=== PATIENT | female | born 1990 | race African-American/Black ===

== ENCOUNTER 2017-09-12 03:33 | Emergency (ER) | payer OTHER ==
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
[2017-09-12 03:46] VITALS: BMI 29.1
[2017-09-12 04:23] LABS: BASOPHIL 0.8 % (0-2.0); EOSINOPHIL 2.6 % (0-4.5); MCH 25.5 pg (25.7-33.7); MCHC 32.5 g/dl (32.0-36.0); MEAN CELL VOLUME 78.5 fl (80-96); MEAN PLT VOLUME 8.2 fl (7.5-11.1); NEUTROPHILS 65.6 % (42.8-82.8); PLATELET COUNT 259 K/MM3 (134-434); RDW 15.1 % (11.6-15.6); WHITE BLOOD COUNT 6.8 K/mm3 (4.0-10.0)
[2017-09-12] MEDS ORDERED: DIPHTH,PERTUSS(ACELL),TET 0.5 ML DISP.SYRIN IM ONE (04:43)
[2017-09-12 04:50] LABS: ALBUMIN 3.7 g/dl (3.4-5.0); ANION GAP 10 (8-16); BILIRUBIN,TOTAL 0.2 mg/dL (0.2-1.0); CALCIUM 8.4 mg/dL (8.5-10.1); CO2 22 mmol/L (21-32); CREATININE 1.1 mg/dL (0.55-1.02); GLUCOSE,RANDOM 101 mg/dL (74-106); SGPT/ALT 25 U/L (12-78); TOT PROT 7.6 g/dl (6.4-8.2)
[2017-09-12 04:52] LABS: ALK PHOS 89 U/L (45-117); SGOT/AST 32 U/L (15-37)
[2017-09-12] MEDS ORDERED: SODIUM CHLORIDE 0.9% 1000 ML INFUS.BAG IV ONE (05:27)
[2017-09-12] MEDS ORDERED: morphine CARPU-JECT 2 MG/1 ML DISP.SYRIN IVPUSH ONE (05:27)
[2017-09-12] MEDS ORDERED: morphine CARPU-JECT 2 MG/1 ML DISP.SYRIN ONE (05:29)
[2017-09-12 08:10] VITALS: TEMP 98
[2017-09-12 11:00] LABS: URINE APPEARANCE SLCLOUDY; URINE BILIRUBIN NEGATIVE (NEGATIVE); URINE BLOOD NEGATIVE (NEGATIVE); URINE COLOR YELLOW; URINE GLUCOSE (UA) NEGATIVE (NEGATIVE); URINE KETONE NEGATIVE (NEGATIVE); URINE NITRITE NEGATIVE (NEGATIVE); URINE UROBILINOGEN NEGATIVE mg/dL (0.2-1.0)
[2017-09-12 11:06] LABS: URINE PROTEIN 1+ (NEGATIVE)
[2017-09-12 11:38] LABS: URINE BACTERIA RARE /hpf (NONE SEEN); URINE HYALINE CAST 23 /lpf; URINE MUCUS MANY; URINE RBC 4 /hpf (0-3); URINE WBC 2 /hpf (3-5)
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
[2017-09-12 12:52] VITALS: BP 133/87; PULSE 89
[2017-09-12 17:59] LABS: URINE LEUK ESTERASE Negative (NEGATIVE)
== END 2017-09-12 12:52 | disposition home or self-care (01) ==
LOC: JER 03:33
PROC: 3E0234Z Introduction of Serum, Toxoid and Vaccine into Muscle, Percutaneous Approach (ICD-10-PCS; principal; 2017-09-12)
PROC: 3E033NZ Introduction of Analgesics, Hypnotics, Sedatives into Peripheral Vein, Percutaneous Approach (ICD-10-PCS; 2017-09-12)
PROC: 3E033NZ Introduction of Analgesics, Hypnotics, Sedatives into Peripheral Vein, Percutaneous Approach (ICD-10-PCS; 2017-09-12)
PROC: 0HQ1XZZ Repair Face Skin, External Approach (ICD-10-PCS; 2017-09-12)
DX: S00.83XA Contusion of other part of head, initial encounter (principal); S01.112A Laceration without foreign body of left eyelid and periocular area, initial encounter; S80.211A Abrasion, right knee, initial encounter; Y04.2XXA Assault by strike against or bumped into by another person, initial encounter; Y93.89 Activity, other specified; Y92.032 Bedroom in apartment as the place of occurrence of the external cause; Y07.01 Husband, perpetrator of maltreatment and neglect
CPT/HCPCS: 12011-25; 36415; 70450-TC; 70486-TC; 80053; 80307; 81003; 81015; 84702; 85025; 85730; 86850; 86900; 86901; 90471; 90715; 96374; 96375; 99283-25

== ENCOUNTER 2018-12-16 12:30 | Emergency (ER) | payer OTHER ==
[2018-12-16 12:34] VITALS: BP 132/82; PULSE 83; TEMP 97.8; BMI 29.1
--- NOTE | 2018-12-16 13:35 | PDOC ---
History of Present Illness - General Chief Complaint: Rash Stated Complaint: SICK Time Seen by Provider: 12/16/18 12:54 - History of Present Illness Initial Comments: 12/16/18 13:32 28-year-old female presents for evaluation of left lower molar toothache times one week. She is requesting a refill of her Elocon steroidal cream for her eczema. She also has concerns of vaginal discharge. She states she gets discharge prior to her period which has been long-standing and going on for years. Past History - Past Medical History Allergies/Adverse Reactions: Allergies Allergy/AdvReac Type Severity Reaction Status Date / Time No Known Allergies Allergy Verified 12/16/18 12:33 Home Medications: Ambulatory Orders Amoxicillin - [Amoxicillin 875mg Tablet -] 875 mg PO BID #14 tab 12/16/18 Mometasone Furoate [Elocon] 15 gm TP DAILY #1 cream..g. 12/16/18 Asthma: Yes COPD: No - Suicide/Smoking/Psychosocial Hx Smoking History: Never smoked Have you smoked in the past 12 months: No Hx Alcohol Use: No Drug/Substance Use Hx: No Review of Systems - Review of Systems Constitutional: No: Fever HEENTM: Yes: Dental Problems Integumentary: Yes: Rash *Physical Exam - Vital Signs Last Vital Signs Temp Pulse Resp BP Pulse Ox 97.8 F 83 18 132/82 98 12/16/18 12:32 12/16/18 12:32 12/16/18 12:32 12/16/18 12:32 12/16/18 12:32 - Physical Exam Comments: 12/16/18 13:33 HEAD: NC/AT EYES: Conjuntiva clear Ears: Canals and TM's normal NOSE: No d/c THROAT: Moist mucous membrances, oral pharanx clear, uvula midline; there is poor dentition and a large cavity in the left rear molar NECK: Supple without adenopathy CARDIAC: S1 S2 LUNGS: CTA Full and Equal breath sounds ABDOMEN: Soft NT ND MS: Full ROM in all joints without edema NEUROLOGIC: No gross sensory or motor deficits, NVID SKIN: Normal color and temperature no lesions there is a diffuse scaly rash about the face and flexor surfaces of the arms Moderate Sedation - Procedure Monitoring Vital Signs: Procedure Monitoring Vital Signs Temperature 97.8 F 12/16/18 12:32 Pulse Rate 83 12/16/18 12:32 Respiratory Rate 18 12/16/18 12:32 Blood Pressure 132/82 12/16/18 12:32 O2 Sat by Pulse Oximetry (%) 98 12/16/18 12:32 *DC/Admit/Observation/Transfer Diagnosis at time of Disposition: Eczema, Tooth decay - Discharge Dispostion Disposition: HOME Condition at time of disposition: Stable Decision to Admit order: No - Prescriptions Prescriptions: Amoxicillin - [Amoxicillin 875mg Tablet -] 875 mg PO BID #14 tab Mometasone Furoate [Elocon] 15 gm TP DAILY #1 cream..g. - Referrals Referrals: Urgent Care [facility] [Outside] - Patient Instructions Printed Discharge Instructions: DI for Tooth Decay Additional Instructions: He may follow-up with urgent care dental at any time for further evaluation and treatment options of your toothache. You should go within the next 1-2 days. Return to the emergency room should symptoms worsen or go unresolved. Please follow-up with your director center as scheduled for reevaluation of your eczema. And follow-up with her baby attendant for evaluation of the discharge - Post Discharge Activity
== END 2018-12-16 13:37 | disposition home or self-care (01) ==
LOC: JERFT 12:30
DX: K02.9 Dental caries, unspecified (principal); L30.8 Other specified dermatitis
CPT/HCPCS: 99281-25

== ENCOUNTER 2019-01-17 22:33 | Emergency (ER) | payer OTHER ==
[2019-01-17 22:42] VITALS: BP 135/80; PULSE 83; TEMP 98; BMI 29.1
--- NOTE | 2019-01-17 23:48 | PDOC ---
History of Present Illness - General Chief Complaint: Rash Stated Complaint: RASH Time Seen by Provider: 01/17/19 23:19 History Source: Patient Exam Limitations: Clinical Condition - History of Present Illness Initial Comments: 01/17/19 23:59 Patient with history of eczema present with complaint of eczema flareup and she ran out of her medication. Patient requests refill of her medication. Patient reported rash to back of bilateral hands and anterior torso. Patient denies any other symptoms Timing/Duration: 1 week Past History - Past Medical History Allergies/Adverse Reactions: Allergies Allergy/AdvReac Type Severity Reaction Status Date / Time No Known Allergies Allergy Verified 01/17/19 22:41 Home Medications: Ambulatory Orders Mometasone Furoate [Elocon] 50 gm TP DAILY #1 cream..g. 01/17/19 Asthma: Yes COPD: No - Suicide/Smoking/Psychosocial Hx Smoking History: Never smoked Have you smoked in the past 12 months: No Information on smoking cessation initiated: No Hx Alcohol Use: No Drug/Substance Use Hx: No Review of Systems - Review of Systems Able to Perform ROS?: Yes Is the patient limited Yi proficient: No Constitutional: No: Fever, Malaise, Weakness HEENTM: No: Symptoms Reported Respiratory: No: Symptoms reported ABD/GI: No: Symptoms Reported, Nausea, Vomiting Integumentary: Yes: See HPI, Pruritus (over rash area), Rash (back of b/l hands. torso) All Other Systems: Reviewed and Negative *Physical Exam - Vital Signs Last Vital Signs Temp Pulse Resp BP Pulse Ox 98.0 F 83 16 135/80 100 01/17/19 22:40 01/17/19 22:40 01/17/19 22:40 01/17/19 22:40 01/17/19 22:40 - Physical Exam Comments: 01/18/19 00:01 GENERAL: Well developed, well nourished. Awake and alert. No acute distress. HEENT: Normocephalic, atraumatic. PERRLA, EOMI. No conjunctival pallor. Sclera are non- icteric. Moist mucous membranes. Oropharynx is clear. NECK: Supple. Full ROM. No JVD. Carotid pulses 2+ and symmetric, without bruits. No thyromegaly. No lymphadenopathy. CARDIOVASCULAR: Regular rate and rhythm. No murmurs, rubs, or gallops. Distal pulses are 2+ and symmetric. PULMONARY: No evidence of respiratory distress. Lungs clear to auscultation bilaterally. No wheezing, rales or rhonchi. ABDOMINAL: Soft. Non-tender. Non-distended. No rebound or guarding. No organomegaly. Normoactive bowel sounds. MUSCULOSKELETAL Normal range of motion at all joints. No bony deformities or tenderness. No CVA tenderness. SKIN: Warm and dry. multiple erythematous plague with scales to dorsal aspect of b/l hands and torso w/o excoriations. Normal capillary refill. No jaundice. NEUROLOGICAL: Alert, awake, appropriate. Gait is normal without ataxia. PSYCHIATRIC: Cooperative. Good eye contact. Appropriate mood and affect. General Appearance: Yes: Nourished, Appropriately Dressed. No: Apparent Distress Moderate Sedation - Procedure Monitoring Vital Signs: Procedure Monitoring Vital Signs Temperature 98.0 F 01/17/19 22:40 Pulse Rate 83 01/17/19 22:40 Respiratory Rate 16 01/17/19 22:40 Blood Pressure 135/80 01/17/19 22:40 O2 Sat by Pulse Oximetry (%) 100 01/17/19 22:40 Medical Decision Making - Medical Decision Making 01/18/19 00:03 Patient with presenting for eczema flareup and ran out of medication. Multiple erythematous rash with scales to dorsal aspect of bilateral hands and anterior torso consistent with eczema. Patient is stable for discharge on Elocon eczema medication with dermatology follow-up. *DC/Admit/Observation/Transfer Diagnosis at time of Disposition: Eczema Qualifiers: Eczema type: unspecified Qualified Code(s): L30.9 - Dermatitis, unspecified - Discharge Dispostion Disposition: HOME Condition at time of disposition: Stable Decision to Admit order: No - Prescriptions Prescriptions: Mometasone Furoate [Elocon] 50 gm TP DAILY #1 cream..g. - Referrals Referrals: Torrie Flowers MD [Staff Physician] - - Patient Instructions Printed Discharge Instructions: Eczema, Contact Dermatitis Additional Instructions: Take medication as prescribed. Follow-up with referred dermatology - Post Discharge Activity
--- NOTE | 2019-01-17 23:55 | PDOC ---
*Physical Exam - Vital Signs Last Vital Signs Temp Pulse Resp BP Pulse Ox 98.0 F 83 16 135/80 100 01/17/19 22:40 01/17/19 22:40 01/17/19 22:40 01/17/19 22:40 01/17/19 22:40 Medical Decision Making - Medical Decision Making 01/17/19 23:55 Pt seen by the Advanced Practice Provider under my direct supervision Ancillary studies reviewed I agree with plan as outlined by the Advanced Practice Provider AMOS Weller *DC/Admit/Observation/Transfer Diagnosis at time of Disposition: Eczema Qualifiers: Eczema type: unspecified Qualified Code(s): L30.9 - Dermatitis, unspecified - Discharge Dispostion Disposition: HOME Condition at time of disposition: Stable - Prescriptions Prescriptions: Mometasone Furoate [Elocon] 50 gm TP DAILY #1 cream..g. - Referrals Referrals: Torrie Flowers MD [Staff Physician] - - Patient Instructions Printed Discharge Instructions: Eczema, Contact Dermatitis Additional Instructions: Take medication as prescribed. Follow-up with referred dermatology - Post Discharge Activity
== END 2019-01-18 00:02 | disposition home or self-care (01) ==
LOC: JER 22:33
DX: L30.9 Dermatitis, unspecified (principal)
CPT/HCPCS: 99281-25

== ENCOUNTER 2019-03-19 17:59 | Emergency (ER) | payer OTHER ==
--- NOTE | 2019-03-19 18:27 | PDOC ---
Rapid Medical Evaluation Chief Complaint: Respiratory Time Seen by Provider: 03/19/19 18:25 Medical Evaluation: Allergies Allergy/AdvReac Type Severity Reaction Status Date / Time No Known Allergies Allergy Verified 01/17/19 22:41 03/19/19 18:25 I did a brief in person evaluation on this patient. CC: Rash and wheezing HPI: Pt states that she used Tilex with Bleach to clean mold from her residence and she feels as if she is wheezing more and has been using more of her inhaler. Pt also has eczema. PE: Skin: Clear Lungs: Clear Heart:RRR Abd: soft, non tender MS: Moves all extremities without difficulty Neuro: alert Psych: appropriate affect. Pt will proceed to [facility] for further evaluation. Discharge Disposition - Diagnosis Asthma Qualifiers: Asthma severity: mild Asthma persistence: unspecified Asthma complication type : uncomplicated Qualified Code(s): J45.909 - Unspecified asthma, uncomplicated - Referrals - Patient Instructions - Post Discharge Activity
[2019-03-19 18:33] VITALS: BP 127/73; PULSE 95; TEMP 98.3; BMI 29.9
--- NOTE | 2019-03-19 19:10 | PDOC ---
History of Present Illness - General Chief Complaint: Respiratory Stated Complaint: RASHES/ASTHMA Time Seen by Provider: 03/19/19 18:25 History Source: Patient Exam Limitations: Clinical Condition - History of Present Illness Initial Comments: 03/19/19 19:11 Patient with history of asthma and eczema present with complaint of asthma exacerbation causing wheezing and chest tightness due to mold contact in her bathroom. Patient lives in the [facility] and reported has been having a month history of mold issue in the bathroom which she has reported to [facility] [employer] without any intervention. Patient reports she was told by [facility] the mood could not be inspected until and of the month. Patient reported episode of red rashes all over the body due to reaction to the mood. Denies fever, chills, weakness. Patient reported she ran out of asthma inhaler. Denies any other symptoms Timing/Duration: other (1 month) Past History - Past Medical History Allergies/Adverse Reactions: Allergies Allergy/AdvReac Type Severity Reaction Status Date / Time No Known Allergies Allergy Verified 01/17/19 22:41 Home Medications: Ambulatory Orders Albuterol Sulfate Inhaler - [Ventolin Hfa Inhaler -] 2 inh PO Q4H #1 inh Mometasone Furoate [Elocon] 50 gm TP DAILY #1 cream..g. 03/19/19 predniSONE [Deltasone -] 20 mg PO BID 5 Days #10 tablet 03/19/19 Asthma: Yes COPD: No - Surgical History Abdominal Surgery: Yes - Immunization History Immunization Up to Date: Yes - Suicide/Smoking/Psychosocial Hx Smoking History: Never smoked Have you smoked in the past 12 months: No Information on smoking cessation initiated: No Hx Alcohol Use: No Drug/Substance Use Hx: No Review of Systems - Review of Systems Able to Perform ROS?: Yes Is the patient limited Kazakh proficient: No Constitutional: No: Fever, Malaise HEENTM: No: Symptoms Reported, See HPI, Eye Pain, Blurred Vision, Tearing, Recent change in vision, Double Vision, Cataracts, Ear Pain, Ocular Prothesis, Ear Discharge, Nose Pain, Nose Congestion, Tinnitus, Nose Bleeding, Hearing Loss , Throat Pain, Throat Swelling, Mouth Pain, Dental Problems, Difficulty Swallowing, Mouth Swelling, Other Respiratory: No: Symptoms reported, See HPI, Cough, Orthopnea, Shortness of Breath, SOB with Exertion, SOB at Rest, Stridor, Wheezing, Productive cough, Hemoptysis, Other Cardiac (ROS): No: Symptoms Reported, See HPI, Chest Pain, Edema, Irregular Heart Rate, Lightheadedness, Palpitations, Syncope, Chest Tightness, Other ABD/GI: No: Nausea, Vomiting Integumentary: Yes: Symptoms Reported, See HPI, Erythema, Rash Neurological: No: Headache, Dizziness All Other Systems: Reviewed and Negative *Physical Exam - Vital Signs Last Vital Signs Temp Pulse Resp BP Pulse Ox 98.3 F 95 H 18 127/73 99 03/19/19 18:26 03/19/19 18:26 03/19/19 18:26 03/19/19 18:26 03/19/19 18:26 - Physical Exam Comments: 03/19/19 19:17 GENERAL: Well developed, well nourished. Awake and alert. No acute distress. HEENT: Normocephalic, atraumatic. PERRLA, EOMI. No conjunctival pallor. Sclera are non-icteric. Moist mucous membranes. Oropharynx is clear. NECK: Supple. Full ROM. CARDIOVASCULAR: Regular rate and rhythm. No murmurs, rubs, or gallops. Distal pulses are 2+ and symmetric. PULMONARY: No evidence of respiratory distress. Lungs clear to auscultation bilaterally. No wheezing, rales or rhonchi. MUSCULOSKELETAL Normal range of motion at all joints. SKIN: Warm and dry. Normal capillary refill. Diffused multiple erythematous rash all over the body with small area of plaques and excoriations to b/l hands NEUROLOGICAL: Alert, awake, appropriate. Gait is normal without ataxia. PSYCHIATRIC: Cooperative. Good eye contact. Appropriate mood General Appearance: Yes: Nourished, Appropriately Dressed. No: Apparent Distress Medical Decision Making - Medical Decision Making 03/19/19 19:14 Patient with history of asthma and eczema present with complaint of asthma exacerbation causing wheezing and chest tightness due to mold contact in her bathroom. Patient lives in the [place] and reported has been having a month history of mold issue in the bathroom which she has reported to [employer] without any intervention. Patient reports she was told by [employer] the mood could not be inspected until and of the month. Patient reported episode of red rashes all over the body due to reaction to the mood. Denies fever, chills, weakness. Patient reported she ran out of asthma inhaler. Denies any other symptoms Exam significant for multiple areas of urticaria rash all over the body and areas of plaques to dorsal aspect of bilateral hands and palm of bilateral hands from eczema which patient report was caused by exposure to mold. Patient in no acute respiratory distress. Lungs clear to auscultation bilateral. Patient is stable for outpatient management on by mouth prednisone, Ventolin inhaler and topical momentosone for rash with PCP follow-up. Patient educated on the importance of eradicating mold from the house to prevent asthma exacerbation *DC/Admit/Observation/Transfer Diagnosis at time of Disposition: Mold exposure, Bronchospasm Asthma Qualifiers: Asthma severity: mild Asthma persistence: unspecified Asthma complication type : uncomplicated Qualified Code(s): J45.909 - Unspecified asthma, uncomplicated - Discharge Dispostion Disposition: HOME Condition at time of disposition: Stable Decision to Admit order: No - Prescriptions Prescriptions: Albuterol Sulfate Inhaler - [Ventolin Hfa Inhaler -] 2 inh PO Q4H #1 inh Mometasone Furoate [Elocon] 50 gm TP DAILY #1 cream..g. predniSONE [Deltasone -] 20 mg PO BID 5 Days #10 tablet - Referrals Referrals: Torrie Flowers MD [Staff Physician] - - Patient Instructions Printed Discharge Instructions: Asthma -- Adult, Asbestosis Additional Instructions: Take medication as prescribed. exposure to mold needs to be eradicated to prevent further asthma exacerbations, skin reaction and difficulty with breathing as mold can cause Asbestos which could be detrimental to your becky and affect your asthma control. Take every necessary step to resolve mold problem so your symptoms can be well controlled and not have asthma attacks - Post Discharge Activity
== END 2019-03-19 19:34 | disposition home or self-care (01) ==
LOC: JERFT 17:59
DX: J45.909 Unspecified asthma, uncomplicated (principal); L30.9 Dermatitis, unspecified; Z77.120 Contact with and (suspected) exposure to mold (toxic)
CPT/HCPCS: 99281-25

== ENCOUNTER 2019-11-26 21:29 | Emergency (ER) | payer OTHER ==
[2019-11-26 21:38] VITALS: BMI 30.7
[2019-11-26] MEDS ORDERED: ACETAMINOPHEN 500 MG TABLET (FP) PO ONE (21:57)
[2019-11-26] MEDS ORDERED: ACETAMINOPHEN 325 MG TABLET (FP) ONE (21:59)
--- NOTE | 2019-11-26 22:59 | PDOC ---
History of Present Illness - General History Source: Patient Exam Limitations: No Limitations - History of Present Illness Initial Comments: 11/26/19 22:54 Patient is a 28F with history of eczema and asthma here today complaining of a week of bodyaches, fevers, and epigastric abdominal pain. Patient also reports associated cloudy urine, denies dysuria. Patient denies chest pain, wheezing, shortness of breath. Last bowel movement two days ago. Denies vaginal symptoms and discharge. LMP 1 week ago. Patient states that she is worried that she has a kidney infection. Denies shortness of breath, chest pain, cough. Endorses rhinorrhea and dry mouth. Patient is also requesting a refill of mometasone for an exczema flare. <Toribio Carter - Last Filed: 11/27/19 00:11> <Halima Martin - Last Filed: 11/28/19 01:50> - General Chief Complaint: Pain, Acute Stated Complaint: ECZEMA Time Seen by Provider: 11/26/19 21:42 Past History - Past Medical History Asthma: Yes COPD: No Other medical history: eczema - Surgical History Abdominal Surgery: Yes - Immunization History Immunization Up to Date: Yes - Psycho Social/Smoking Cessation Hx Smoking History: Never smoked Have you smoked in the past 12 months: No Hx Alcohol Use: No Drug/Substance Use Hx: No <Toribio Carter - Last Filed: 11/27/19 00:11> <Halima Martin - Last Filed: 11/28/19 01:50> - Past Medical History Allergies/Adverse Reactions: Allergies Allergy/AdvReac Type Severity Reaction Status Date / Time No Known Allergies Allergy Verified 01/17/19 22:41 Home Medications: Ambulatory Orders Albuterol Sulfate Inhaler - [Ventolin Hfa Inhaler -] 2 inh PO Q4H #1 inh Mometasone Furoate [Elocon] 50 gm TP DAILY #1 cream..g. 03/19/19 predniSONE [Deltasone -] 20 mg PO BID 5 Days #10 tablet 03/19/19 Mometasone Furoate 45 gm TP DAILY #1 cream..g. 11/26/19 Cephalexin Monohydrate [Keflex -] 500 mg PO TID #30 capsule 11/27/19 Review of Systems - Review of Systems Able to Perform ROS?: Yes Comments:: 11/26/19 22:59 GENERAL/CONSTITUTIONAL: +fever +chills. No weakness. HEAD, EYES, EARS, NOSE AND THROAT: No change in vision. No sore throat. CARDIOVASCULAR: No chest pain or shortness of breath RESPIRATORY: No cough, wheezing, or hemoptysis. GASTROINTESTINAL: No nausea, vomiting, diarrhea or constipation. GENITOURINARY: No dysuria, frequency, +cloudy urine MUSCULOSKELETAL: No joint or muscle swelling or pain. No neck or back pain. SKIN: No rash NEUROLOGIC: No headache, vertigo, loss of consciousness, or change in strength/ sensation. ENDOCRINE: No increased thirst. No abnormal weight change HEMATOLOGIC/LYMPHATIC: No anemia, easy bleeding, or history of blood clots. ALLERGIC/IMMUNOLOGIC: No hives or skin allergy. <Toribio Carter - Last Filed: 11/27/19 00:11> *Physical Exam - Vital Signs Last Vital Signs Temp Pulse Resp BP Pulse Ox 102.9 F H 109 H 20 119/72 98 11/26/19 21:30 11/26/19 21:30 11/26/19 21:30 11/26/19 21:30 11/26/19 21:30 - Physical Exam 11/26/19 22:59 GENERAL: Awake, alert, and fully oriented, in no acute distress HEAD: No signs of trauma, normocephalic, atraumatic EYES: PERRLA, EOMI, sclera anicteric, conjunctiva clear ENT: Auricles normal inspection, hearing grossly normal, nares patent, oropharynx clear without exudates. Moist mucosa NECK: Normal ROM, supple, no lymphadenopathy, JVD, or masses LUNGS: No distress, speaks full sentences, clear to auscultation bilaterally HEART: Regular rate and rhythm, normal S1 and S2, no murmurs, rubs or gallops, peripheral pulses normal and equal bilaterally. ABDOMEN: Soft, nontender, normoactive bowel sounds. No guarding, no rebound. No masses EXTREMITIES: Normal inspection, Normal range of motion, no edema. No clubbing or cyanosis. NEUROLOGICAL: Cranial nerves II through XII grossly intact. Normal speech, normal gait, no focal sensorimotor deficits SKIN: Warm, Dry, normal turgor, no rashes or lesions noted. <Toribio Carter - Last Filed: 11/27/19 00:11> - Vital Signs Last Vital Signs Temp Pulse Resp BP Pulse Ox 98.5 F 80 18 115/75 99 11/27/19 00:20 11/27/19 00:20 11/27/19 00:20 11/27/19 00:20 11/27/19 00:20 <Halima Martin - Last Filed: 11/28/19 01:50> ED Treatment Course - Medications Given in the ED: ED Medications Discontinued Medications Generic Name Dose Route Start Last Admin Trade Name Freq PRN Reason Stop Dose Admin Acetaminophen 1,000 mg 11/26/19 21:57 11/26/19 22:01 Tylenol - PO 11/26/19 21:58 1,000 mg ONCE ONE Administration <Toribio Carter - Last Filed: 11/27/19 00:11> - Medications Given in the ED: ED Medications Discontinued Medications Generic Name Dose Route Start Last Admin Trade Name Freq PRN Reason Stop Dose Admin Acetaminophen 1,000 mg 11/26/19 21:57 11/26/19 22:01 Tylenol - PO 11/26/19 21:58 1,000 mg ONCE ONE Administration Cephalexin HCl 500 mg 11/27/19 00:13 11/27/19 00:24 Keflex - PO 11/27/19 00:14 500 mg ONCE ONE Administration <Halmia Martin - Last Filed: 11/28/19 01:50> Medical Decision Making - Medical Decision Making 11/26/19 22:59 Patient is 28F with history of asthma and eczema here today with fever and bodyaches. Nontender abdomen. DDx includes, but is not limited to: flu, viral syndrome, uti. Will evaluate with ua, rapid influenza, u preg. Given tylenol for fever. Patient is well appearing and not septic. Tolerating PO. 11/27/19 00:11 Flu negative. UTI+, will discharge with keflex. <Toribio Carter - Last Filed: 11/27/19 00:11> Discharge - Discharge Information Problems reviewed: Yes - Admission No <Toribio Carter - Last Filed: 11/27/19 00:11> <Halima Martin - Last Filed: 11/28/19 01:50> - Discharge Information Clinical Impression/Diagnosis: UTI (urinary tract infection) Condition: Good Disposition: HOME - Additional Discharge Information Prescriptions: Cephalexin Monohydrate [Keflex -] 500 mg PO TID #30 capsule Mometasone Furoate 45 gm TP DAILY #1 cream..g. - Patient Discharge Instructions Patient Printed Discharge Instructions: DI for Urinary Tract Infection (UTI) Additional Instructions: Please follow up with your primary care doctor in the next week. Please return if you have any new, worsening or concerning symptoms, especially increasing pain in your abdomen. - Post Discharge Activity Work/Back to School Note: Back to Work
--- NOTE | 2019-11-26 23:16 | PDOC ---
Attending Attestation - Resident Resident Name: RaulToribio - ED Attending Attestation I have performed the following: I have examined & evaluated the patient, The case was reviewed & discussed with the resident, I agree w/resident's findings & plan - HPI HPI: 11/26/19 23:15 Patient is a 28F with history of eczema and asthma here today complaining of a week of bodyaches, fevers, and epigastric abdominal pain. Patient also reports associated cloudy urine, denies dysuria. no chest pain, wheezing, shortness of breath. Last bowel movement two days ago. Denies vaginal symptoms and discharge. LMP 1 week ago. Denies shortness of breath, chest pain, cough. Endorses rhinorrhea and dry mouth. Patient is also requesting a refill of mometasone for eczema - Physicial Exam PE: 11/26/19 23:15 Agree with the resident's HPI and PE as documented in the electronic medical record. NAD, well appearing, EOMI, PERRL, nl conjunctiva, anicteric; neck supple. lungs clear, RRR, abdomen soft b/l flank TTP, no rebound, guarding. Back nontender. FRIAS x4, no focal neuro deficits. No peripheral edema. normal color for ethnicity, WWP. eczema on face, eczema patches on back and torso 11/27/19 00:15 11/27/19 00:24 - Medical Decision Making 11/26/19 23:15 Vital Signs Temp Pulse Resp BP Pulse Ox 102.9 F H 109 H 20 119/72 98 11/26/19 21:30 11/26/19 21:30 11/26/19 21:30 11/26/19 21:30 11/26/19 21:30 Vital signs notable for tachycardia and fever, normotensive and normal sats, no respiratory distress. Patient is comfortable and nontoxic appearing. We will check UA for infection, Respiratory infection could be viral versus flu, unlikely be pneumonia with clear lungs and no respiratory findings or lung exam abnormalities. given tylenol for fever, will recheck VS keith PO intake. ambulatory UA prelim with +Leuk esterase, could be UTI/early pyelonephritis, treat with abx flu neg. neg preg test. repeat VS with defervescence, tachy improved, well appearing. VS normalized treating as early pyelo with pain control, fluids, oral abx trial and return precautions if failure of abx 2-3 days. adequate rest and hydration. DC stable condition, return precautions, f/u culture. rx keflex x 10 days. rx mometasone for her eczema 11/27/19 00:04 11/27/19 00:15 11/27/19 00:24
[2019-11-26 23:20] LABS: URINE APPEARANCE CLOUDY; URINE BILIRUBIN NEGATIVE (NEGATIVE); URINE COLOR YELLOW; URINE GLUCOSE (UA) NEGATIVE (NEGATIVE); URINE KETONE TRACE (NEGATIVE); URINE LEUK ESTERASE 3+ (NEGATIVE); URINE NITRITE NEGATIVE (NEGATIVE); URINE PROTEIN 1+ (NEGATIVE)
[2019-11-26 23:42] LABS: URINE RBC 10.8 /hpf (0-4)
[2019-11-26 23:43] LABS: EPI CELLS 3.2 /HPF (0-5/HPF); HYALINE CASTS 5.95 /lpf (0-8); URINE BACTERIA 970.2 /hpf (NEGATIVE); URINE WBC 687.8 /hpf (0-5)
[2019-11-27] MEDS ORDERED: CEPHALEXIN MONOHYDRATE 500 MG CAPSULE (UD) PO ONE (00:13)
[2019-11-27] MEDS ORDERED: CEPHALEXIN MONOHYDRATE 500 MG CAPSULE (UD) ONE (00:15)
[2019-11-27 00:26] VITALS: BP 115/75; PULSE 80; TEMP 98.5
== END 2019-11-27 00:20 | disposition home or self-care (01) ==
LOC: JER 21:29
DX: L30.9 Dermatitis, unspecified (principal); J45.909 Unspecified asthma, uncomplicated
CPT/HCPCS: 81003; 84703; 87086; 87186; 87804; 99283-25

== ENCOUNTER 2020-06-23 16:59 | Emergency (ER) | payer OTHER ==
--- NOTE | 2020-06-23 17:04 | PDOC ---
Rapid Medical Evaluation Chief Complaint: Vaginal Sxs Time Seen by Provider: 06/23/20 17:01 Medical Evaluation: Allergies Allergy/AdvReac Type Severity Reaction Status Date / Time No Known Allergies Allergy Verified 01/17/19 22:41 06/23/20 17:01 The patient is a 29 y/o F who presents to the ER with vaginal discharge for 1 week. States it smells and off white in color. States she has not been sexually active in 7-8 months. Exam: defer to provider Order: urine Pt to proceed to the ER for further evaluation Discharge Disposition - Diagnosis Vaginal discharge - Referrals - Patient Instructions - Post Discharge Activity
[2020-06-23 17:11] VITALS: BP 125/81; PULSE 88; TEMP 98.1; BMI 27.4
--- NOTE | 2020-06-23 18:28 | PDOC ---
History of Present Illness - General Chief Complaint: Vaginal Sxs Stated Complaint: vaginal symptoms/dark urine Time Seen by Provider: 06/23/20 17:01 History Source: Patient Exam Limitations: No Limitations - History of Present Illness Initial Comments: 06/23/20 18:23 Patient is a 29-year-old female presents to the ED with complaint of vaginal discharge for the last 2 days. She states her period ended 1 week ago and began to have a discharge 2 days ago. She states the discharge is thin, beige in color and foul-smelling. She states she had BV in the past and this seems si milar. She denies any fevers or chills. She denies any abdominal pain. She denies any dysuria or hematuria. She does admit to not drinking very much water recently as her brother recently and she had not been taking good care of herself. She is doing better now drinking without order now. She states she has not been sexually active in about 5 months and is less concerned about this being an STD. Past History - Medical History Allergies/Adverse Reactions: Allergies Allergy/AdvReac Type Severity Reaction Status Date / Time No Known Allergies Allergy Verified 01/17/19 22:41 Home Medications: Ambulatory Orders Albuterol Sulfate Inhaler - [Ventolin Hfa Inhaler -] 2 inh PO Q4H #1 inh 03/19/19 Mometasone Furoate [Elocon] 50 gm TP DAILY #1 cream..g. 03/19/19 predniSONE [Deltasone -] 20 mg PO BID 5 Days #10 tablet 03/19/19 Mometasone Furoate 45 gm TP DAILY #1 cream..g. 11/26/19 metroNIDAZOLE 0.75% VAG. GEL [Metrogel 0.75% *Vaginal Gel* -] 1 applic VG HS 7 Days #1 tube 06/23/20 Asthma: Yes COPD: No - Surgical History Abdominal Surgery: Yes - Immunization History Immunization Up to Date: Yes - Psycho-Social/Smoking History Smoking History: Never smoked Have you smoked in the past 12 months: No - Substance Abuse Hx (Audit-C & DAST Scrn) How often the patient has a drink containing alcohol: Never Score: In Men: 4 or > Positive; In Women: 3 or > Positive: 0 Screen Result (Pos requires Nsg. Audit-10AR): Negative Review of Systems - Review of Systems Comments:: 06/23/20 18:25 - Review of Systems Able to Perform ROS?: Yes Constitutional: No: Fever, Chills, Loss of Appetite, Night Sweats, Weakness HEENTM: No: Eye Pain, Vision changes, Ear Pain, Throat Pain, Throat Swelling, Mouth Pain, Difficulty Swallowing Respiratory: No: Cough, Shortness of Breath, Wheezing, Sputum Production Cardiac (ROS): No: Chest Pain, Chest Tightness, Palpitations, Irregular Heart Beat, Edema ABD/GI: No: Nausea, Vomiting, Abdominal Pain, Diarrhea : No Dysuria, No Hematuria, No Frequency, No Urgency, positive: Vaginal discharge Musculoskeletal: No: Muscle Pain, Back Pain, Joint Pain, Muscle Weakness, Neck Pain Integumentary: No: Lesions, Rash Neurological: No: Headache, Numbness, Tingling, Weakness, Speech Difficulties *Physical Exam - Vital Signs Last Vital Signs Temp Pulse Resp BP Pulse Ox 98.1 F 88 20 125/81 97 06/23/20 17:01 06/23/20 17:01 06/23/20 17:01 06/23/20 17:01 06/23/20 17:01 - Physical Exam 06/23/20 18:25 - Physical Exam General Appearance: Nourished, Appropriately Dressed, No Distress HEENT: EOMI, Normal Voice, Hearing Grossly Normal Neck: Supple, No Lymphadenopathy (R), No Lymphadenopathy (L), No Rigidity, No Decreased range of motion Respiratory/Chest: Lungs Clear, Normal Breath Sounds. No Respiratory Distress, No Accessory Muscle Use Cardiovascular: Regular Rhythm, Regular Rate, S1, S2 Gastrointestinal/Abdominal: Normal Bowel Sounds, Soft. Non-tender, No Guarding, No Rebound, No Rigidity HEALTH INFORMATICS INSTRUCTOR: There is thin, beige, foul-smelling discharge in the vaginal vault. There is only a minimal to moderate amount of discharge in the vault. Cervix is nonfriable. No CMT. Adnexa is nontender and nonpalpable. No suprapubic tenderness and no masses palpated. Musculoskeletal: Normal Inspection. No Decreased Range of Motion Extremity: Normal Capillary Refill, Normal Inspection Integumentary: Normal Color, Dry. No Rash Neurologic: production line II-XII NML intact, Fully Oriented, Alert, Normal Mood/Affect, Normal Response ED Treatment Course - ADDITIONAL ORDERS Additional order review: 06/23/20 19:10 Laboratory Tests 06/23/20 06/23/20 18:22 18:22 Urine Color Yellow Urine Appearance Cloudy Urine pH 5.5 Ur Specific Hazel 1.029 Urine Protein Trace Urine Glucose (UA) Negative Urine Ketones Trace H Urine Blood Negative Urine Nitrite Negative Urine Bilirubin Negative Urine Urobilinogen 1.0 Ur Leukocyte Esterase 1+ H Urine WBC (Auto) 71 Urine RBC (Auto) 14 Urine Casts (Auto) 21 U Epithel Cells (Auto) >36 Urine Bacteria (Auto) 1657 Urine HCG, Qual Negative C. trachomatis (YADY) Pending N. gonorrhoeae (YADY) Pending Medical Decision Making - Medical Decision Making 06/23/20 18:26 Assessment: Patient is a 29-year-old female with 2 days of vaginal discharge. Plan: -The exam is consistent with bacterial vaginosis, vaginal culture sent -UA and urine culture ordered and sent -GC chlamydia ordered and sent -Will reassess 06/23/20 19:10 The patient has been made aware that her urinalysis shows a possible urinary tract infection but is contaminated. We will hold off on prescribing antib iotics at this time and we will wait for the urine culture. If the urine culture is positive we will call the patient and send a prescription to her pharmacy. We will treat her for bacterial vaginosis with MetroGel vaginal. She has been made aware that we will call her if her GC/chlamydia culture is positive. She understands and agrees with this treatment plan and she is stable for discharge. Discharge - Discharge Information Problems reviewed: Yes Clinical Impression/Diagnosis: Vaginal discharge, Bacterial vaginosis Condition: Stable Disposition: HOME - Additional Discharge Information Prescriptions: metroNIDAZOLE 0.75% VAG. GEL [Metrogel 0.75% *Vaginal Gel* -] 1 applic VG HS 7 Days #1 tube - Follow up/Referral - Patient Discharge Instructions Patient Printed Discharge Instructions: DI for Bacterial Vaginosis Additional Instructions: You have been treated for bacterial vaginosis with MetroGel vaginal. Your urinalysis shows a possible urinary tract infection but it does appear contaminated and we will wait for the urine culture to determine whether or not you need antibiotics. If you need antibiotics we will give you a call to prescribe those antibiotics to you. STD testing for gonorrhea and chlamydia has been performed today. If those tests are positive we will call you with the positive results and for treatment. Avoid any sexual intercourse until you have completed the entire course of MetroGel vaginal. Use the MetroGel vaginal at night before bed. Follow-up with your BILLING AND QUALITY TECHNICIAN within 1 week for repeat evaluation. - Post Discharge Activity Work/Back to School Note: Back to Work
[2020-06-23 18:59] LABS: EPI CELLS >36 /uL (0-25.1); HCG,QUALITATIVE URINE Negative; HYALINE CASTS 21 /uL (0-3.1); PH,URINE 5.5 (5.0-8.0); URINE APPEARANCE CLOUDY; URINE BACTERIA 1657 /uL (0-1359); URINE BILIRUBIN NEGATIVE (NEGATIVE); URINE COLOR YELLOW; URINE GLUCOSE (UA) NEGATIVE (NEGATIVE); URINE KETONE TRACE (NEGATIVE); URINE LEUK ESTERASE 1+ (NEGATIVE); URINE NITRITE NEGATIVE (NEGATIVE); URINE PROTEIN TRACE (NEGATIVE); URINE RBC 14 /uL (0-23.9); URINE WBC 71 /uL (0-25.8)
== END 2020-06-23 19:32 | disposition home or self-care (01) ==
LOC: JER 16:59 → JERFT 16:59
DX: N89.8 Other specified noninflammatory disorders of vagina (principal); N76.0 Acute vaginitis
CPT/HCPCS: 36415; 81003; 84703; 87070; 87086; 87205; 87491; 87591; 99283-25

== ENCOUNTER 2020-11-30 20:28 | Emergency (ER) | payer OTHER | END 2020-11-30 21:58 | disposition home or self-care (01) | LOC: JERFT 20:28 | CPT/HCPCS: 99281-25 ==

== ENCOUNTER 2021-04-12 12:02 | Emergency (ER) | payer OTHER ==
[2021-04-12 12:12] VITALS: BP 121/71; PULSE 80; TEMP 98.1; BMI 25.7
== END 2021-04-12 13:02 | disposition home or self-care (01) ==
LOC: JER 12:02
DX: B00.1 Herpesviral vesicular dermatitis (principal); Z11.52 Encounter for screening for COVID-19
CPT/HCPCS: 36415; 86694; 99283-25; C9803; U0003; U0005

== ENCOUNTER 2021-05-19 08:46 | Emergency (ER) | payer OTHER ==
[2021-05-19 08:58] VITALS: BP 123/75; PULSE 79; TEMP 98.4; BMI 26.1
== END 2021-05-19 09:32 | disposition home or self-care (01) ==
LOC: JERFT 08:46
DX: L30.9 Dermatitis, unspecified (principal)
CPT/HCPCS: 99281-25

== ENCOUNTER 2021-07-11 10:36 | Emergency (ER) | payer OTHER ==
[2021-07-11 10:45] VITALS: BP 121/81; PULSE 71; TEMP 98; BMI 27.8
[2021-07-11 12:01] LABS: URINE APPEARANCE CLEAR; URINE BILIRUBIN NEGATIVE (NEGATIVE); URINE COLOR YELLOW; URINE GLUCOSE (UA) NEGATIVE (NEGATIVE); URINE KETONE NEGATIVE (NEGATIVE); URINE LEUK ESTERASE NEGATIVE (NEGATIVE); URINE NITRITE NEGATIVE (NEGATIVE); URINE PROTEIN NEGATIVE (NEGATIVE); URINE UROBILINOGEN 0.2 mg/dL (0.2-1.0)
== END 2021-07-11 12:01 | disposition home or self-care (01) ==
LOC: JER 10:36
DX: N89.9 Noninflammatory disorder of vagina, unspecified (principal)
CPT/HCPCS: 36415; 81003; 84703; 87070; 87077; 87086; 87205; 87491; 87591; 99283-25

== ENCOUNTER 2021-11-04 18:53 | Emergency (ER) | payer OTHER ==
[2021-11-04 19:18] VITALS: BP 107/65; PULSE 85; TEMP 98.1; BMI 27.4
== END 2021-11-04 20:00 | disposition home or self-care (01) ==
LOC: JERFT 18:53
DX: L30.8 Other specified dermatitis (principal)
CPT/HCPCS: 99283-25

== ENCOUNTER 2021-11-25 08:15 | Emergency (ER) | payer OTHER ==
[2021-11-25 08:32] VITALS: BP 117/81; PULSE 67; TEMP 97.8; BMI 26.6
[2021-11-26 13:06] LABS: SARS-CoV-2 NAA Not Detected (Not Detected)
== END 2021-11-25 08:33 | disposition home or self-care (01) ==
LOC: JCOVINFU 08:15
DX: L30.9 Dermatitis, unspecified (principal); Z20.822 Contact with and (suspected) exposure to COVID-19
CPT/HCPCS: 99283-25; C9803; U0003; U0005

== ENCOUNTER 2023-04-27 10:19 | Emergency (ER) | payer OTHER ==
[2023-04-27 10:22] VITALS: BP 120/85; PULSE 103; RESP 18; TEMP 98.6; BMI 26.6
== END 2023-04-27 11:11 | disposition home or self-care (01) ==
LOC: JERFT 10:19
DX: H53.141 Visual discomfort, right eye (principal); H53.142 Visual discomfort, left eye; Z76.0 Encounter for issue of repeat prescription
CPT/HCPCS: 99282-25